=== PATIENT | female | born 2005 | race Two or more races ===

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

== ENCOUNTER 2025-01-22 01:39 | Emergency (ER) | payer OTHER ==
[~2025-01-22] VITALS: Ht 160 cm; Wt 52.3 kg
[~2025-01-22 01:39] MED LIST changes: +ACET-2247 PO; +IBUP-45 PO
[2025-01-22 01:47] VITALS: BP 109/67; PULSE 70; RESP 16; TEMP 97.5; O2SAT 98
[2025-01-22] MEDS: AMOXICILLIN TRIHYDRATE 250 MG CAPSULE PO ONE (02:19)
[2025-01-22] MEDS: OXYMETAZOLINE HCL 0.05% 15 ML NASAL SPRAY NASAL ONE (02:20)
[2025-01-22] MEDS ORDERED: AMOX500C2 PO (03:46)
[2025-01-22] MEDS ORDERED: PRED-554 PO (03:47)
== END 2025-01-22 04:20 | disposition home or self-care (01) ==
LOC: EMS 01:57
DX: J01.80 Other acute sinusitis (principal); F12.90 Cannabis use, unspecified, uncomplicated; Z79.52 Long term (current) use of systemic steroids; Z79.899 Other long term (current) drug therapy
CPT/HCPCS: 84702; 99283

== ENCOUNTER 2025-02-22 18:23 | Emergency (ER) | payer MEDICAID, OTHER ==
[~2025-02-22] VITALS: Ht 160 cm; Wt 50.0 kg
[~2025-02-22 18:23] MED LIST changes: +AMOX500C2 PO; +PRED-554 PO
[2025-02-23] MEDS ORDERED: IBUP-1492 PO (01:09)
[2025-02-23] MEDS ORDERED: METH-812 PO (01:09)
[2025-02-23 02:02] VITALS: BP 124/67; PULSE 71; RESP 18; TEMP 97.3; O2SAT 99
== END 2025-02-23 03:09 | disposition home or self-care (01) ==
LOC: EMS 18:24
DX: S00.83XA Contusion of other part of head, initial encounter (principal); S09.90XA Unspecified injury of head, initial encounter; F12.90 Cannabis use, unspecified, uncomplicated; Z65.3 Problems related to other legal circumstances; X58.XXXA Exposure to other specified factors, initial encounter; Y93.89 Activity, other specified; Y92.89 Other specified places as the place of occurrence of the external cause; Y99.8 Other external cause status
CPT/HCPCS: 70450; 71045; 72125; 84703; 99284